=== PATIENT | male | born 1960 | race Caucasian/White ===

== ENCOUNTER → 2017-04-17 | Outpatient (CLI) | payer BC, OTHER ==
[~2017-04-17] MED LIST: ANAS1TAB PO; CHOL500014 PO; ESCI20TA PO; MULT-412 PO; TEST100V2 IM; THYR25PO PO; TRINTELLIX PO
== END | disposition home or self-care (01) ==
LOC: STAR 08:21
PROVIDERS: ATTEND Orthopaedic Surgery
DX: Z02.9 Encounter for administrative examinations, unspecified (principal)

== ENCOUNTER 2017-04-23 06:14 | Day surgery (SDC) | payer BC, OTHER ==
[~2017-04-23] VITALS: Ht 177.8 cm; Wt 73.5 kg
[~2017-04-23 06:14] MED LIST changes: +EPINEPHRINE 1 MG/ML, 1ML ONE; +LIDOCAINE/PF 1%, 30ML ONE; +ROPIvacaine/PF 0.5%, 30 ML ONE
[2017-04-23] MEDS ORDERED: LACTATED RINGERS 1,000 ML IV SCH (07:00)
[2017-04-23 07:03] VITALS: BP 122/74
[2017-04-23] MEDS ORDERED: MIDAZOLAM 1 MG/ML, 2ML ONE (07:23)
[2017-04-23] MEDS ORDERED: FENTANYL PF 250 MCG/5ML ONE (07:23)
[2017-04-23] MEDS ORDERED: ONDANSETRON 2MG/ML, 2ML ONE (07:56)
[2017-04-23] MEDS ORDERED: CEFAZOLIN 1,000 MG ONE (07:56)
[2017-04-23] MEDS ORDERED: KETOROLAC 30 MG/1 ML ONE (07:56)
[2017-04-23] MEDS ORDERED: PROPOFOL 10 MG/ML, 20ML ONE (07:56)
[2017-04-23] MEDS ORDERED: DEXAMETHASONE 4 MG/ML, 1ML ONE (07:56)
[2017-04-23] MEDS ORDERED: OXYcodone 5 MG/5 ML ORAL.SOL UDC PO PRN (08:30)
[2017-04-23] MEDS ORDERED: ACETAMINOPHEN 325 MG TABLET PO PRN (08:30)
[2017-04-23] MEDS ORDERED: MEPERIDINE/PF 25MG/0.5ML IVPush PRN (08:30)
[2017-04-23] MEDS ORDERED: MIDAZOLAM 1 MG/ML, 2ML IV PRN (08:30)
[2017-04-23] MEDS ORDERED: ALBUTEROL/IPRATROPIUM 2.5MG/0.5MG, 3 ML NPPB PRN (08:30)
[2017-04-23] MEDS ORDERED: FENTANYL PF 100 MCG/2ML IV PRN (08:30)
[2017-04-23] MEDS ORDERED: HYDROmorphone 1 MG/ML, 1ML IV PRN (08:30)
[2017-04-23] MEDS ORDERED: ONDANSETRON 2MG/ML, 2ML IVPush PRN (08:30)
[2017-04-23] MEDS ORDERED: PROMETHAZINE 25 MG/ML, 1ML IV PRN (08:30)
== END 2017-04-23 10:20 ==
LOC: OUT 06:14
PROVIDERS: ATTEND Orthopaedic Surgery
DX: S83.231A Complex tear of medial meniscus, current injury, right knee, initial encounter (principal); S83.281A Other tear of lateral meniscus, current injury, right knee, initial encounter; M94.261 Chondromalacia, right knee; M65.861 Other synovitis and tenosynovitis, right lower leg; E03.9 Hypothyroidism, unspecified; Z88.5 Allergy status to narcotic agent; X58.XXXA Exposure to other specified factors, initial encounter; Y93.89 Activity, other specified; Y92.89 Other specified places as the place of occurrence of the external cause; Y99.8 Other external cause status
CPT/HCPCS: 29880; J0171; J0690; J1100; J1885; J2250; J2405; J2704; J2795; J3010; J3490; J7120

== ENCOUNTER → 2018-12-17 | Outpatient (CLI) | payer BC ==
[~2018-12-17] MED LIST changes: -CHOL500014 PO; +CHOL500045 PO; -EPINEPHRINE 1 MG/ML, 1ML ONE; -LIDOCAINE/PF 1%, 30ML ONE; -ROPIvacaine/PF 0.5%, 30 ML ONE
== END | disposition home or self-care (01) ==
LOC: ROC 07:21
PROVIDERS: ATTEND Radiology Radiation Oncology
DX: C61 Malignant neoplasm of prostate (principal)
CPT/HCPCS: 99214; G0463

== ENCOUNTER 2019-02-23 07:08 | Outpatient (CLI) | payer BC ==
[2019-02-23] MEDS ORDERED: MIDAZOLAM 1 MG/ML, 5ML IVPush ONE (07:45)
[2019-02-23] MEDS ORDERED: LIDOCAINE/PF 1%, 30ML IV ONE (07:45)
[2019-02-23] MEDS ORDERED: FENTANYL PF 100 MCG/2ML IVPush ONE (07:45)
== END 2019-02-23 23:59 | disposition home or self-care (01) ==
LOC: ROC 07:08
PROVIDERS: ATTEND Radiology Radiation Oncology
DX: C61 Malignant neoplasm of prostate (principal)
CPT/HCPCS: 55876; 76942; 77332; 99156; A4648; J2250; J3010; J3490

== ENCOUNTER → 2019-03-01 | Outpatient (CLI) | payer BC | END | disposition home or self-care (01) | LOC: CFH 11:44 | PROVIDERS: ATTEND Radiology Radiation Oncology | DX: C61 Malignant neoplasm of prostate (principal) | CPT/HCPCS: 72195 ==

== ENCOUNTER 2019-10-22 11:00 | Outpatient (CLI) | payer BC | END 2019-10-22 23:59 | disposition home or self-care (01) | LOC: ROC 11:00 | PROVIDERS: ATTEND Radiology Radiation Oncology | DX: C61 Malignant neoplasm of prostate (principal); Z79.899 Other long term (current) drug therapy; Z88.2 Allergy status to sulfonamides; Z88.5 Allergy status to narcotic agent | CPT/HCPCS: 99212; G0463 ==